=== PATIENT | female | born 1960 | race Two or more races ===

== ENCOUNTER 2023-03-28 10:52 | Emergency (ER) | payer OTHER ==
[~2023-03-28] VITALS: Ht 172.7 cm; Wt 83.9 kg
== END 2023-03-28 14:40 | disposition home or self-care (01) ==
LOC: ER 10:52
DX: S80.02XA Contusion of left knee, initial encounter (principal); S80.01XA Contusion of right knee, initial encounter; W18.30XA Fall on same level, unspecified, initial encounter; Y93.9 Activity, unspecified; Y92.9 Unspecified place or not applicable; Y99.9 Unspecified external cause status; Z88.0 Allergy status to penicillin